=== PATIENT | female | born 1990 | race African-American/Black ===

== ENCOUNTER 2017-01-03 17:51 | Emergency (ER) | payer OTHER ==
[~2017-01-03] VITALS: Ht 165.1 cm; Wt 124.3 kg
[~2017-01-03 17:51] MED LIST: IBUPROFEN 600600 M1; IRON325; PRENATAL; PROMETHAZINE-C120 ML PO; ZOFRAN ODT4 MG PO
[2017-01-03 17:52] VITALS: BP 107/78
== END 2017-01-03 19:08 | disposition home or self-care (01) ==
LOC: ER 17:51
DX: M54.9 Dorsalgia, unspecified (principal); Z53.21 Procedure and treatment not carried out due to patient leaving prior to being seen by health care provider

== ENCOUNTER 2019-09-06 12:45 | Emergency (ER) | payer OTHER ==
[~2019-09-06] VITALS: Ht 165.1 cm; Wt 117.9 kg
[2019-09-06 14:03] VITALS: BP 129/71
== END 2019-09-06 14:04 | disposition home or self-care (01) ==
LOC: ER 12:45
DX: J06.9 Acute upper respiratory infection, unspecified (principal); B34.9 Viral infection, unspecified